=== PATIENT | female | born 1940 | race African-American/Black ===

== ENCOUNTER 2018-09-05 19:00 | Inpatient (IN) ==
[2018-09-05] MEDS ORDERED: METOPROLOL TARTRATE 5 MG/5 ML VIAL IV ONE (19:21)
[2018-09-05] MEDS ORDERED: METOPROLOL TARTRATE 5 MG/5 ML VIAL IV STA (19:22)
[2018-09-05] MEDS ORDERED: ASPIRIN 325 MG TABLET PO STA (19:22)
[2018-09-05] MEDS ORDERED: ONDANSETRON 4 MG/2 ML VIAL IV STA (19:22)
[2018-09-05] MEDS ORDERED: dilTIAZem Drip 125 MG/125 ML PREMIX IV ONE (19:27)
[2018-09-05] MEDS ORDERED: dilTIAZem Drip 125 MG/125 ML PREMIX IV SCH ×2 (19:30→20:30)
[2018-09-05 19:35] LABS: Basophils % 0.1 % (0.0-0.8); Eosinophils % 0.1 % (0.00-10.9); Hematocrit 39.7 VOL% (35.7-47.0); Hemoglobin 12.5 GM/DL (12.0-16.0); Immature Granulocytes % 0.4 %; Immature Granulocytes Absolute 0.05 #; Lymphocytes % 8.4 % (21.3-54.2); Mean Corpuscular HGB Conc 31.5 GM/DL (32-36); Mean Corpuscular Volume 98.8 FL (87-102); Monocytes % 9.2 % (1.7-12.7); Neutrophils % 81.8 % (38.7-73.9); Platelet Count 189 T/CUMM (130-400); Red Blood Count 4.02 MC/CUMM (3.8-5.5); Red Cell Distribution Width 12.5 % (9.3-17.3); White Blood Count 11.5 T/CUMM (4-12)
[2018-09-05 19:43] LABS: INR 0.9; PT Patient Result 10.2 SECS
[2018-09-05 20:06] LABS: Albumin 3.6 G/DL (3.4-5.0); Bilirubin,Total 1.3 MG/DL (0.2-1.0); Calcium 9.5 MG/DL (8.5-10.1); Osmolality,Calculated 272.1 MOS/KG (273-304); Total Protein 7.8 G/DL (6.4-8.3)
[2018-09-05] MEDS ORDERED: POTASSIUM CHLORIDE 20 MEQ TABLET PO STA (20:14)
[2018-09-05] MEDS ORDERED: ENOXAPARIN 30 MG/0.3 ML SYRINGE SUBCUT STA (20:17)
[2018-09-05] MEDS ORDERED: PROMETHAZINE 25 MG/1 ML VIAL IM PRN (20:21)
[2018-09-05] MEDS ORDERED: ONDANSETRON 4 MG/2 ML VIAL IV PRN (20:21)
[2018-09-05] MEDS ORDERED: diphenhydrAMINE CAP 25 MG CAPSULE PO PRN (20:21)
[2018-09-05] MEDS ORDERED: NICOTINE 21 MG/24 HR PATCH TRANSDERM PRN (20:21)
[2018-09-05] MEDS ORDERED: POTASSIUM CHLORIDE 20 MEQ TABLET PO PRN (20:21)
[2018-09-05] MEDS ORDERED: GLUCAGON 1 MG VIAL IM PRN (20:21)
[2018-09-05] MEDS ORDERED: MORPHINE 4 MG/1 ML VIAL IV PRN (20:21)
[2018-09-05] MEDS ORDERED: BISACODYL 5 MG TABLET PO PRN (20:21)
[2018-09-05] MEDS ORDERED: DEXTROSE 50% 25 GM/50 ML VIAL IV PRN (20:21)
[2018-09-05] MEDS ORDERED: ACETAMINOPHEN 325 MG TABLET PO PRN (20:21)
[2018-09-05 21:07] LABS: Risk Ratio 1.81; Thyroid Stimulating Hormone 2.62 uIU/ml (0.358-3.74)
[2018-09-06] MEDS: SODIUM CHLORIDE 0.9% 1,000 ML IV SCH ×2 (00:49→14:49)
[2018-09-06] MEDS: INSULIN REGULAR 100 UNIT/ML SUBCUT SCH ×5 (00:50→22:05)
[2018-09-06 05:27] LABS: Basophils % 0.3 % (0.0-0.8); Eosinophils # 0.1 10*3/uL (0.0-0.87); Eosinophils % 0.8 % (0.00-10.9); Hematocrit 34.3 VOL% (35.7-47.0); Hemoglobin 10.8 GM/DL (12.0-16.0); Immature Granulocytes % 0.5 %; Immature Granulocytes Absolute 0.04 #; Lymphocytes # 1.1 10*3/uL (1.4-4.0); Mean Corpuscular HGB Conc 31.5 GM/DL (32-36); Mean Corpuscular Volume 99.1 FL (87-102); Mean Platelet Volume 12.1 FL (9.6-12.0); Monocytes % 11.8 % (1.7-12.7); Neutrophils % 72.6 % (38.7-73.9); Platelet Count 162 T/CUMM (130-400); Red Blood Count 3.46 MC/CUMM (3.8-5.5); Red Cell Distribution Width 12.6 % (9.3-17.3); White Blood Count 7.8 T/CUMM (4-12)
[2018-09-06] MEDS ORDERED: hydrALAZINE 20 MG/1 ML VIAL IV PRN (05:36)
[2018-09-06 06:03] LABS: Albumin 2.9 G/DL (3.4-5.0); Bilirubin,Total 1.6 MG/DL (0.2-1.0); Calcium 9.2 MG/DL (8.5-10.1); Osmolality,Calculated 274.7 MOS/KG (273-304); Total Protein 6.8 G/DL (6.4-8.3)
[2018-09-06] MEDS ORDERED: POTASSIUM CHLORIDE 20 MEQ TABLET PO ONE (07:41)
[2018-09-06] MEDS ORDERED: ENOXAPARIN 80 MG/0.8 ML SYRINGE SUBCUT ONE (08:00)
[2018-09-06] MEDS: PANTOPRAZOLE 40 MG TABLET PO SCH (09:17)
[2018-09-06] MEDS: POTASSIUM CHLORIDE RIDER 10 MEQ in PREMIX 1 EACH IV SCH ×2 (10:10→13:33)
[2018-09-06] MEDS: MAGNESIUM OXIDE 400 MG TABLET PO SCH ×2 (12:29→22:04)
[2018-09-06 17:49] LABS: Apearance,Urine CLEAR (Clear); Bilirubin,Urine Negative (Negative); Blood, Urine Small mg/dL (Negative); Glucose,Urine (UA) Negative (Negative); Ketones,Urine 5 mg/dL (Negative); Mucus,Urine Few /LPF (Occasional); Nitrite,Urine Negative (Negative); Protein,Urine 30 MG/DL; RBC,Urine 16 /HPF (0-4); Squamous Epithelial Cell,Urine Occasional /HPF (0-10); Urine Color Dark yellow (Yellow); Urine Specific Gravity 1.023 (1.001-1.035); WBC,Urine 3 /HPF (0-6)
[2018-09-06] MEDS: APIXABAN 5 MG TABLET PO SCH (22:05)
[2018-09-06] MEDS: METOPROLOL TARTRATE 25 MG TABLET PO SCH (22:05)
[2018-09-07 06:00] LABS: Basophils % 0.3 % (0.0-0.8); Eosinophils # 0.2 10*3/uL (0.0-0.87); Eosinophils % 2.4 % (0.00-10.9); Hematocrit 34.7 VOL% (35.7-47.0); Hemoglobin 11.1 GM/DL (12.0-16.0); Immature Granulocytes % 0.3 %; Immature Granulocytes Absolute 0.02 #; Lymphocytes # 1.1 10*3/uL (1.4-4.0); Lymphocytes % 16.7 % (21.3-54.2); Mean Corpuscular Volume 99.1 FL (87-102); Mean Platelet Volume 12.1 FL (9.6-12.0); Monocytes % 8.5 % (1.7-12.7); Neutrophils % 71.8 % (38.7-73.9); Platelet Count 163 T/CUMM (130-400); Red Cell Distribution Width 12.5 % (9.3-17.3); White Blood Count 6.6 T/CUMM (4-12)
[2018-09-07 06:22] LABS: Osmolality,Calculated 271.8 MOS/KG (273-304)
[2018-09-07] MEDS ORDERED: DONEPEZIL 5 MG TABLET PO SCH (09:00)
[2018-09-07] MEDS ORDERED: ASPIRIN EC 81 MG TABLET PO SCH (09:00)
[2018-09-07] MEDS ORDERED: LISINOPRIL 5 MG TABLET PO SCH (09:00)
[2018-09-07] MEDS ORDERED: POTASSIUM CHLORIDE 20 MEQ TABLET PO SCH (09:00)
[2018-09-07] MEDS ORDERED: SERTRALINE 25 MG TABLET PO SCH (09:00)
[2018-09-07] MEDS ORDERED: ATORVASTATIN 10 MG TABLET PO SCH (09:00)
[2018-09-07] MEDS: INSULIN REGULAR 100 UNIT/ML SUBCUT SCH (09:28)
[2018-09-07] MEDS: MAGNESIUM OXIDE 400 MG TABLET PO SCH (09:30)
[2018-09-07] MEDS: METOPROLOL TARTRATE 25 MG TABLET PO SCH (09:30)
[2018-09-07] MEDS: PANTOPRAZOLE 40 MG TABLET PO SCH (09:31)
[2018-09-07] MEDS: APIXABAN 5 MG TABLET PO SCH (09:31)
[2018-09-07 11:54] VITALS: BP 151/85
== END 2018-09-07 12:55 | disposition home or self-care (01) | DRG 309 ==
LOC: N.ED 19:00 → SUATTDRO 20:22 → N.EDINP 20:22 → N.TELEN 22:10
PROVIDERS: ADMIT Family Medicine; ATTEND Internal Medicine

== ENCOUNTER 2019-05-26 10:44 | Inpatient (IN) ==
[2019-05-26] MEDS ORDERED: ACETAMINOPHEN 500 MG TABLET ONE (11:01)
[2019-05-26] MEDS ORDERED: cefTRIAXone 1,000 MG in SODIUM CHLORIDE 0.9% 100 ML IV STA (11:21)
[2019-05-26 11:30] LABS: Basophils % 0.1 % (0.0-0.8); Hematocrit 41.3 VOL% (35.7-47.0); Hemoglobin 13.2 GM/DL (12.0-16.0); Immature Granulocytes % 0.4 %; Immature Granulocytes Absolute 0.04 #; Lymphocytes # 0.3 10*3/uL (1.4-4.0); Lymphocytes % 3.7 % (21.3-54.2); Mean Corpuscular Volume 98.6 FL (87-102); Mean Platelet Volume 12.3 FL (9.6-12.0); Monocytes % 3.2 % (1.7-12.7); Neutrophils % 92.6 % (38.7-73.9); Platelet Count 154 T/CUMM (130-400); Red Blood Count 4.19 MC/CUMM (3.8-5.5); Red Cell Distribution Width 11.7 % (9.3-17.3)
[2019-05-26 11:49] LABS: Apearance,Urine Slightly Hazy (Clear); Bacteria,Urine Occasional /HPF (Few); Bilirubin,Urine Negative (Negative); Blood, Urine Negative (Negative); Glucose,Urine (UA) 50 mg/dL (Negative); Ketones,Urine 20 mg/dL (Negative); Mucus,Urine Occasional /LPF (Occasional); Nitrite,Urine Negative (Negative); Protein,Urine >=500 MG/DL; RBC,Urine 9 /HPF (0-4); Squamous Epithelial Cell,Urine Occasional /HPF (0-10); Urine Color Amber (Yellow); Urine Specific Gravity 1.027 (1.001-1.035); WBC,Urine 3 /HPF (0-6)
[2019-05-26 11:58] LABS: Alanine Aminotransferase 17 U/L (13-56); Albumin 3.1 G/DL (3.4-5.0); Alkaline Phosphatase 78 U/L (45-117); Aspartate Amino Transferase 51 U/L (0-37); Blood Urea Nitrogen 9 MG/DL (7-18); Calcium 8.6 MG/DL (8.5-10.1); Estimated Glom Filtration Rate 114 ML/MIN; Glucose 91 MG/DL (74-106); Osmolality,Calculated 268.1 MOS/KG (273-304); Total Protein 7.6 G/DL (6.4-8.3)
[2019-05-26 12:49] LABS: Band Neutrophils 25 % (0-10); Lymphocytes 2 % (20-55); Platelet Estimate Normal; Segmented Neutrophils 71 % (50-85); Total Cells Counted 100
[2019-05-26 12:50] LABS: Anisocytosis 1+; Macrocytosis Slight
[2019-05-26 13:47] LABS: ABG Base Excess 6.4 MMOL/L (-2.5-2.5); ABG Oxygen Saturation 90.6 % (95-100); ABG PCO2 35.8 MM HG (35-48); ABG PH 7.521 (7.35-7.45); ABG TCO2 25.8 MMOL/L (23-27)
[2019-05-26] MEDS: PIPERACILLIN/TAZOBACTAM 3,375 MG in SODIUM CHLORIDE 0.9% 100 ML IV SCH ×2 (14:21→22:30)
[2019-05-26] MEDS ORDERED: AZITHROMYCIN INJ 500 MG in SODIUM CHLORIDE 0.9% 250 ML IV SCH (14:30)
[2019-05-26] MEDS ORDERED: DEXTROSE 50% 25 GM/50 ML SYRINGE IV ONE (14:30)
[2019-05-26] MEDS ORDERED: DEXTROSE 10% 250 ML BAG IV PRN (14:31)
[2019-05-26] MEDS ORDERED: DEXTROSE 50% 25 GM/50 ML VIAL IV PRN (14:31)
[2019-05-26] MEDS ORDERED: GLUCAGON 1 MG VIAL IM PRN (14:31)
[2019-05-26] MEDS ORDERED: DEXTROSE 50% 25 GM/50 ML SYRINGE IV PRN (14:32)
[2019-05-26] MEDS ORDERED: SIMETHICONE CHEW 125 MG TABLET PO PRN (15:07)
[2019-05-26] MEDS ORDERED: DOCUSATE SODIUM 100 MG CAPSULE PO PRN (15:07)
[2019-05-26] MEDS ORDERED: LACTULOSE 20 GM/30 ML UDCUP PO PRN (15:07)
[2019-05-26] MEDS ORDERED: ALUMINUM/MAGNES/SIMETH MAX STR 30 ML UDCUP PO PRN (15:07)
[2019-05-26] MEDS ORDERED: ACETAMINOPHEN 500 MG TABLET PO STA (15:07)
[2019-05-26] MEDS ORDERED: ZALEPLON 5 MG CAPSULE PO PRN (15:07)
[2019-05-26] MEDS ORDERED: BISACODYL 5 MG TABLET PO PRN (15:07)
[2019-05-26] MEDS ORDERED: POTASSIUM CHLORIDE RIDER 10 MEQ in PREMIX 1 EACH IV PRN (15:07)
[2019-05-26] MEDS: INSULIN LISPRO 100 UNIT/ML SUBCUT SCH (15:40)
[2019-05-26] MEDS: VANCOMYCIN INJ 1,000 MG in SODIUM CHLORIDE 0.9% 250 ML IV SCH (17:47)
[2019-05-26] MEDS: APIXABAN 5 MG TABLET PO SCH (21:50)
[2019-05-26 21:53] LABS: ABG Base Excess 6.6 MMOL/L (-2.5-2.5); ABG HCO3 30.2 MMOL/L (20-26); ABG Oxygen Saturation 88.9 % (95-100); ABG PCO2 38.3 MM HG (35-48); ABG PH 7.504 (7.35-7.45); ABG PO2 53.8 MM HG (80-95); ABG TCO2 26.4 MMOL/L (23-27); Allen Test Positive
[2019-05-27] MEDS: INSULIN LISPRO 100 UNIT/ML SUBCUT SCH ×3 (00:35→12:34)
[2019-05-27] MEDS: VANCOMYCIN INJ 1,000 MG in SODIUM CHLORIDE 0.9% 250 ML IV SCH (05:00)
[2019-05-27 06:45] LABS: Albumin 2.8 G/DL (3.4-5.0); Bilirubin,Total 0.9 MG/DL (0.2-1.0); Calcium 8.9 MG/DL (8.5-10.1); Total Protein 7.9 G/DL (6.4-8.3)
[2019-05-27 07:00] LABS: Risk Ratio 1.91
[2019-05-27] MEDS ORDERED: DEXTROSE 5% NACL 0.45% 1,000 ML IV SCH (07:00)
[2019-05-27] MEDS ORDERED: SODIUM CHLORIDE 0.9% 1,000 ML IV SCH (07:00)
[2019-05-27] MEDS: PIPERACILLIN/TAZOBACTAM 3,375 MG in SODIUM CHLORIDE 0.9% 100 ML IV SCH ×2 (07:29→19:51)
[2019-05-27] MEDS ORDERED: SODIUM PHOSPHATE INJ 30 MMOL in SODIUM CHLORIDE 0.9% 250 ML IV ONE (08:00)
[2019-05-27] MEDS: ATORVASTATIN 10 MG TABLET PO SCH (10:54)
[2019-05-27] MEDS: DONEPEZIL 5 MG TABLET PO SCH (10:54)
[2019-05-27] MEDS: APIXABAN 5 MG TABLET PO SCH ×2 (10:54→21:40)
[2019-05-27] MEDS: ASPIRIN EC 81 MG TABLET PO SCH (10:54)
[2019-05-27] MEDS: lisinopriL 5 MG TABLET PO SCH (10:55)
[2019-05-27] MEDS: SERTRALINE 25 MG TABLET PO SCH (10:55)
[2019-05-27] MEDS: POTASSIUM CHLORIDE RIDER 10 MEQ in PREMIX 1 EACH IV PRN ×4 (12:27→17:30)
[2019-05-27 12:38] LABS: Basophils % 0.1 % (0.0-0.8); Hematocrit 42.9 VOL% (35.7-47.0); Hemoglobin 13.8 GM/DL (12.0-16.0); Immature Granulocytes % 0.5 %; Immature Granulocytes Absolute 0.05 #; Lymphocytes # 0.5 10*3/uL (1.4-4.0); Lymphocytes % 5.4 % (21.3-54.2); Mean Corpuscular HGB Conc 32.2 GM/DL (32-36); Mean Corpuscular Volume 99.5 FL (87-102); Mean Platelet Volume 12.2 FL (9.6-12.0); Monocytes % 2.6 % (1.7-12.7); Neutrophils % 91.4 % (38.7-73.9); Platelet Count 165 T/CUMM (130-400); Red Blood Count 4.31 MC/CUMM (3.8-5.5); Red Cell Distribution Width 11.9 % (9.3-17.3); White Blood Count 9.8 T/CUMM (4-12)
[2019-05-27] MEDS: ACETAMINOPHEN 325 MG TABLET PO PRN (12:45)
[2019-05-27] MEDS ORDERED: SODIUM CHLORIDE 0.9% 2,200 ML IV ONE (15:33)
[2019-05-27] MEDS ORDERED: ACETAMINOPHEN 650 MG SUPP RECTAL ONE (15:41)
[2019-05-27] MEDS ORDERED: ACETAMINOPHEN 650 MG SUPP RECTAL PRN (15:41)
[2019-05-27 16:18] LABS: ABG Base Excess 3.5 MMOL/L (-2.5-2.5); ABG HCO3 27.4 MMOL/L (20-26); ABG Oxygen Saturation 90.5 % (95-100); ABG PCO2 32.5 MM HG (35-48); ABG PH 7.511 (7.35-7.45); ABG PO2 55.6 MM HG (80-95); ABG TCO2 22.6 MMOL/L (23-27)
[2019-05-27 16:27] LABS: Band Neutrophils 7 % (0-10); Lymphocytes 7 % (20-55); Segmented Neutrophils 84 % (50-85); Total Cells Counted 100
[2019-05-27 16:28] LABS: Microcytosis 1+; Platelet Estimate Adequate
[2019-05-27] MEDS: AZITHROMYCIN 250 MG TABLET PO SCH (18:47)
[2019-05-27] MEDS: METOPROLOL TARTRATE 25 MG TABLET PO SCH (21:40)
[2019-05-27] MEDS: ASCORBIC ACID 500 MG TABLET PO SCH (21:40)
[2019-05-28] MEDS: DEXTROSE 5% NACL 0.45% 1,000 ML IV SCH ×2 (00:30→21:31)
[2019-05-28] MEDS: VANCOMYCIN INJ 1,000 MG in SODIUM CHLORIDE 0.9% 250 ML IV SCH ×2 (00:32→14:46)
[2019-05-28] MEDS: PIPERACILLIN/TAZOBACTAM 3,375 MG in SODIUM CHLORIDE 0.9% 100 ML IV SCH ×3 (03:45→21:32)
[2019-05-28 04:54] LABS: ABG Base Excess 3.2 MMOL/L (-2.5-2.5); ABG HCO3 27.1 MMOL/L (20-26); ABG PCO2 34.5 MM HG (35-48); ABG PH 7.489 (7.35-7.45); ABG PO2 49.8 MM HG (80-95); ABG TCO2 22.9 MMOL/L (23-27)
[2019-05-28 06:10] LABS: Basophils % 0.1 % (0.0-0.8); Hematocrit 40.7 VOL% (35.7-47.0); Hemoglobin 12.7 GM/DL (12.0-16.0); Immature Granulocytes % 0.6 %; Immature Granulocytes Absolute 0.06 #; Lymphocytes # 0.4 10*3/uL (1.4-4.0); Lymphocytes % 3.5 % (21.3-54.2); Mean Corpuscular HGB Conc 31.2 GM/DL (32-36); Mean Platelet Volume 12.3 FL (9.6-12.0); Monocytes % 1.5 % (1.7-12.7); Neutrophils % 94.3 % (38.7-73.9); Platelet Count 179 T/CUMM (130-400); Red Blood Count 4.07 MC/CUMM (3.8-5.5); Red Cell Distribution Width 11.9 % (9.3-17.3); White Blood Count 10.7 T/CUMM (4-12)
[2019-05-28 06:28] LABS: Band Neutrophils 6 % (0-10); Lymphocytes 4 % (20-55); Platelet Estimate Adequate; Segmented Neutrophils 90 % (50-85); Total Cells Counted 100
[2019-05-28 06:29] LABS: Hypochromasia 1+; Microcytosis 1+; Ovalocytes Slight
[2019-05-28 06:32] LABS: Albumin 2.1 G/DL (3.4-5.0); Bilirubin,Total 0.7 MG/DL (0.2-1.0); Calcium 8.5 MG/DL (8.5-10.1); Total Protein 6.8 G/DL (6.4-8.3)
[2019-05-28] MEDS: ASPIRIN EC 81 MG TABLET PO SCH (09:49)
[2019-05-28] MEDS: ATORVASTATIN 10 MG TABLET PO SCH (09:49)
[2019-05-28] MEDS: DONEPEZIL 5 MG TABLET PO SCH (09:49)
[2019-05-28] MEDS: AZITHROMYCIN 250 MG TABLET PO SCH (09:49)
[2019-05-28] MEDS: ASCORBIC ACID 500 MG TABLET PO SCH ×2 (09:49→22:34)
[2019-05-28] MEDS: lisinopriL 5 MG TABLET PO SCH (09:50)
[2019-05-28] MEDS: APIXABAN 5 MG TABLET PO SCH ×2 (09:50→22:34)
[2019-05-28] MEDS: SERTRALINE 25 MG TABLET PO SCH (09:50)
[2019-05-28] MEDS: METOPROLOL TARTRATE 25 MG TABLET PO SCH ×2 (09:50→22:34)
[2019-05-28] MEDS ORDERED: POTASSIUM CHLORIDE 20 MEQ TABLET PO ONE (12:00)
[2019-05-28] MEDS: ACETAMINOPHEN 325 MG TABLET PO PRN (16:59)
[2019-05-28] MEDS: hydrALAZINE 20 MG/1 ML VIAL IV PRN (17:15)
[2019-05-28] MEDS ORDERED: ONDANSETRON 4 MG/2 ML VIAL IV ONE (17:21)
[2019-05-28 17:58] LABS: ABG Base Excess 1.7 MMOL/L (-2.5-2.5); ABG HCO3 25.7 MMOL/L (20-26); ABG Oxygen Saturation 89.1 % (95-100); ABG PCO2 34.8 MM HG (35-48); ABG PH 7.465 (7.35-7.45); ABG PO2 54.6 MM HG (80-95); ABG TCO2 21.9 MMOL/L (23-27)
[2019-05-29] MEDS: VANCOMYCIN INJ 1,000 MG in SODIUM CHLORIDE 0.9% 250 ML IV SCH ×2 (03:41→13:15)
[2019-05-29] MEDS: PIPERACILLIN/TAZOBACTAM 3,375 MG in SODIUM CHLORIDE 0.9% 100 ML IV SCH ×3 (03:49→18:05)
[2019-05-29 04:12] LABS: ABG HCO3 25.9 MMOL/L (20-26); ABG Oxygen Saturation 82.9 % (95-100); ABG PCO2 41.6 MM HG (35-48); ABG PH 7.416 (7.35-7.45); ABG TCO2 23.6 MMOL/L (23-27)
[2019-05-29 06:40] LABS: Amorphous Crystals,Urine Few /HPF (Few); Apearance,Urine CLEAR (Clear); Bacteria,Urine Occasional /HPF (Few); Bilirubin,Urine Negative (Negative); Blood, Urine Negative (Negative); Glucose,Urine (UA) Negative (Negative); Ketones,Urine 5 mg/dL (Negative); Nitrite,Urine Negative (Negative); Protein,Urine 100 MG/DL; RBC,Urine 14 /HPF (0-4); Urine Color Yellow (Yellow); Urine Specific Gravity 1.016 (1.001-1.035); Urine Urobilinogen < 2.0 EU/DL (0.2-1.0); WBC,Urine 1 /HPF (0-6)
[2019-05-29] MEDS: hydrALAZINE 20 MG/1 ML VIAL IV PRN (08:15)
[2019-05-29 08:34] LABS: Albumin 2.2 G/DL (3.4-5.0); Bilirubin,Total 0.5 MG/DL (0.2-1.0); Calcium 8.6 MG/DL (8.5-10.1); Osmolality,Calculated 279.5 MOS/KG (273-304); Total Protein 6.6 G/DL (6.4-8.3)
[2019-05-29] MEDS: METOPROLOL TARTRATE 25 MG TABLET PO SCH ×2 (08:35→21:30)
[2019-05-29] MEDS: lisinopriL 5 MG TABLET PO SCH (08:35)
[2019-05-29] MEDS: APIXABAN 5 MG TABLET PO SCH ×2 (08:35→21:30)
[2019-05-29] MEDS: ASPIRIN EC 81 MG TABLET PO SCH (08:35)
[2019-05-29] MEDS: DONEPEZIL 5 MG TABLET PO SCH (08:35)
[2019-05-29] MEDS: SERTRALINE 25 MG TABLET PO SCH (08:35)
[2019-05-29] MEDS: ASCORBIC ACID 500 MG TABLET PO SCH ×2 (08:35→21:30)
[2019-05-29] MEDS: AZITHROMYCIN 250 MG TABLET PO SCH (08:35)
[2019-05-29] MEDS: ATORVASTATIN 10 MG TABLET PO SCH (08:35)
[2019-05-29] MEDS ORDERED: FUROSEMIDE 40 MG/4 ML VIAL IV ONE (09:28)
[2019-05-29] MEDS ORDERED: methylPREDNISolone SOD SUC 40 MG/1 ML VIAL IM SCH (09:30)
[2019-05-29] MEDS: methylPREDNISolone SOD SUC 40 MG/1 ML VIAL IV SCH ×2 (10:35→21:30)
[2019-05-29 10:40] LABS: Basophils % 0.1 % (0.0-0.8); Hematocrit 39.5 VOL% (35.7-47.0); Hemoglobin 12.3 GM/DL (12.0-16.0); Immature Granulocytes % 0.9 %; Lymphocytes # 0.3 10*3/uL (1.4-4.0); Mean Corpuscular HGB Conc 31.1 GM/DL (32-36); Mean Corpuscular Volume 101.8 FL (87-102); Mean Platelet Volume 11.5 FL (9.6-12.0); Monocytes % 2.5 % (1.7-12.7); Neutrophils % 93.5 % (38.7-73.9); Platelet Count 246 T/CUMM (130-400); Red Blood Count 3.88 MC/CUMM (3.8-5.5); Red Cell Distribution Width 12.1 % (9.3-17.3); White Blood Count 11.4 T/CUMM (4-12)
[2019-05-29 10:58] LABS: Band Neutrophils 4 % (0-10); Lymphocytes 4 % (20-55); Segmented Neutrophils 89 % (50-85); Total Cells Counted 100
[2019-05-29 10:59] LABS: Hypochromasia 1+; Macrocytosis Slight; Ovalocytes Slight
[2019-05-29] MEDS: POTASSIUM CHLORIDE RIDER 10 MEQ in PREMIX 1 EACH IV PRN (11:32)
[2019-05-29] MEDS: POTASSIUM CHLORIDE 20 MEQ TABLET PO PRN ×2 (13:33→14:29)
[2019-05-29] MEDS: ACETAMINOPHEN 325 MG TABLET PO PRN ×2 (14:29→22:10)
[2019-05-29] MEDS ORDERED: CALCIUM ACETATE 667 MG CAPSULE PO SCH (17:00)
[2019-05-29] MEDS: DEXTROSE 5% NACL 0.45% 1,000 ML IV SCH (23:20)
[2019-05-30] MEDS: VANCOMYCIN INJ 1,000 MG in SODIUM CHLORIDE 0.9% 250 ML IV SCH ×2 (00:40→13:40)
[2019-05-30] MEDS: PIPERACILLIN/TAZOBACTAM 3,375 MG in SODIUM CHLORIDE 0.9% 100 ML IV SCH ×3 (02:30→16:36)
[2019-05-30 05:55] LABS: Basophils % 0.1 % (0.0-0.8); Hematocrit 40.5 VOL% (35.7-47.0); Hemoglobin 12.7 GM/DL (12.0-16.0); Immature Granulocytes % 0.7 %; Immature Granulocytes Absolute 0.06 #; Lymphocytes # 0.3 10*3/uL (1.4-4.0); Lymphocytes % 4.1 % (21.3-54.2); Mean Corpuscular HGB Conc 31.4 GM/DL (32-36); Mean Platelet Volume 11.5 FL (9.6-12.0); Monocytes % 2.5 % (1.7-12.7); Neutrophils % 92.6 % (38.7-73.9); Platelet Count 275 T/CUMM (130-400); Red Blood Count 4.01 MC/CUMM (3.8-5.5); Red Cell Distribution Width 11.9 % (9.3-17.3); White Blood Count 8.3 T/CUMM (4-12)
[2019-05-30 06:06] LABS: ABG HCO3 25.2 MMOL/L (20-26); ABG Oxygen Saturation 86.3 % (95-100); ABG PCO2 42.9 MM HG (35-48); ABG PH 7.386 (7.35-7.45); ABG PO2 54.5 MM HG (80-95); ABG TCO2 26.5 MMOL/L (23-27); Allen Test Positive
[2019-05-30 06:14] LABS: Albumin 2.2 G/DL (3.4-5.0); Bilirubin,Total 0.4 MG/DL (0.2-1.0); Osmolality,Calculated 288.5 MOS/KG (273-304); Total Protein 6.8 G/DL (6.4-8.3)
[2019-05-30 06:18] LABS: Band Neutrophils 2 % (0-10); Hypochromasia 1+; Lymphocytes 1 % (20-55); Metamyelocytes 1 %; Segmented Neutrophils 90 % (50-85); Total Cells Counted 100
[2019-05-30 06:30] LABS: Burr Cells Slight; Macrocytosis Slight; Platelet Estimate Normal
[2019-05-30] MEDS: methylPREDNISolone SOD SUC 40 MG/1 ML VIAL IV SCH ×2 (08:35→20:00)
[2019-05-30] MEDS: AZITHROMYCIN 250 MG TABLET PO SCH (08:35)
[2019-05-30] MEDS: ATORVASTATIN 10 MG TABLET PO SCH (08:35)
[2019-05-30] MEDS: METOPROLOL TARTRATE 25 MG TABLET PO SCH ×2 (08:35→20:11)
[2019-05-30] MEDS: SERTRALINE 25 MG TABLET PO SCH (08:35)
[2019-05-30] MEDS: APIXABAN 5 MG TABLET PO SCH ×2 (08:35→20:11)
[2019-05-30] MEDS: ASCORBIC ACID 500 MG TABLET PO SCH ×2 (08:35→20:11)
[2019-05-30] MEDS: DONEPEZIL 5 MG TABLET PO SCH (08:35)
[2019-05-30] MEDS: ASPIRIN EC 81 MG TABLET PO SCH (08:35)
[2019-05-30 12:36] LABS: Bilirubin,Total 0.5 MG/DL (0.2-1.0); Calcium 9.2 MG/DL (8.5-10.1); Osmolality,Calculated 289.5 MOS/KG (273-304)
[2019-05-30] MEDS: hydrALAZINE 20 MG/1 ML VIAL IV PRN (16:10)
[2019-05-30] MEDS: LORazepam 2 MG/1 ML VIAL IV PRN (20:11)
[2019-05-30] MEDS: MORPHINE 4 MG/1 ML VIAL IV PRN (22:41)
[2019-05-31] MEDS: LORazepam 2 MG/1 ML VIAL IV PRN (00:50)
[2019-05-31] MEDS: PIPERACILLIN/TAZOBACTAM 3,375 MG in SODIUM CHLORIDE 0.9% 100 ML IV SCH ×2 (00:50→08:54)
[2019-05-31] MEDS: MORPHINE 4 MG/1 ML VIAL IV PRN ×3 (04:20→14:57)
[2019-05-31 07:17] LABS: Basophils % 0.1 % (0.0-0.8); Hematocrit 38.1 VOL% (35.7-47.0); Hemoglobin 11.9 GM/DL (12.0-16.0); Immature Granulocytes % 0.8 %; Immature Granulocytes Absolute 0.11 #; Lymphocytes # 0.4 10*3/uL (1.4-4.0); Lymphocytes % 2.9 % (21.3-54.2); Mean Corpuscular HGB Conc 31.2 GM/DL (32-36); Mean Corpuscular Volume 100.8 FL (87-102); Mean Platelet Volume 11.6 FL (9.6-12.0); Monocytes % 3.7 % (1.7-12.7); Neutrophils % 92.5 % (38.7-73.9); Platelet Count 335 T/CUMM (130-400); Red Blood Count 3.78 MC/CUMM (3.8-5.5); White Blood Count 13.6 T/CUMM (4-12)
[2019-05-31 07:35] LABS: Albumin 2.2 G/DL (3.4-5.0); Bilirubin,Total 0.5 MG/DL (0.2-1.0); Calcium 9.3 MG/DL (8.5-10.1); Osmolality,Calculated 294.4 MOS/KG (273-304); Total Protein 6.9 G/DL (6.4-8.3)
[2019-05-31 07:36] LABS: Burr Cells Slight; Hypochromasia Slight; Lymphocytes 4 % (20-55); Ovalocytes Slight; Platelet Estimate Adequate; Segmented Neutrophils 90 % (50-85); Total Cells Counted 100
[2019-05-31] MEDS: methylPREDNISolone SOD SUC 40 MG/1 ML VIAL IV SCH (08:56)
[2019-05-31] MEDS: APIXABAN 5 MG TABLET PO SCH (08:56)
[2019-05-31] MEDS: ASPIRIN EC 81 MG TABLET PO SCH (08:56)
[2019-05-31] MEDS: DONEPEZIL 5 MG TABLET PO SCH (08:56)
[2019-05-31] MEDS: ATORVASTATIN 10 MG TABLET PO SCH (08:56)
[2019-05-31] MEDS: METOPROLOL TARTRATE 25 MG TABLET PO SCH (08:57)
[2019-05-31] MEDS: SERTRALINE 25 MG TABLET PO SCH (08:57)
[2019-05-31] MEDS: ASCORBIC ACID 500 MG TABLET PO SCH (08:57)
[2019-05-31] MEDS ORDERED: FUROSEMIDE 100 MG/10 ML VIAL IV ONE (10:30)
[2019-05-31 11:00] VITALS: BP 147/66
[2019-05-31] MEDS ORDERED: MORPHINE 4 MG/1 ML VIAL IV PRN ×2 (12:14→12:33)
[2019-05-31] MEDS ORDERED: LORazepam 2 MG/1 ML VIAL IV PRN (12:33)
[2019-05-31] MEDS ORDERED: FUROSEMIDE 40 MG/4 ML VIAL ONE (13:48)
[2019-05-31] MEDS ORDERED: VANCOMYCIN INJ 1,000 MG in SODIUM CHLORIDE 0.9% 250 ML IV SCH (15:00)
[2019-05-31] MEDS ORDERED: methylPREDNISolone SOD SUC 40 MG/1 ML VIAL IV SCH (17:00)
== END 2019-05-31 14:39 | disposition hospice, inpatient (51) | DRG 177 ==
LOC: EDUNIT# → EDBD → N.ED 10:44 → N.EDINP 13:43 → SUATTDRO 13:43 → N.EDINP 14:25 → N.2E 15:21 → N.ICU 05-28 18:29 → N.2W 05-29 18:26
PROVIDERS: ADMIT Internal Medicine; ATTEND Internal Medicine

== ENCOUNTER 2019-05-31 14:52 | Inpatient (IN) ==
[2019-06-01] MEDS: MORPHINE 4 MG/1 ML VIAL IV PRN ×6 (01:30→22:47)
[2019-06-02] MEDS: MORPHINE 4 MG/1 ML VIAL IV PRN ×5 (04:03→21:14)
[2019-06-03] MEDS: MORPHINE 4 MG/1 ML VIAL IV PRN ×2 (02:56→16:04)
[2019-06-04] MEDS: MORPHINE 4 MG/1 ML VIAL IV PRN ×4 (00:40→16:52)
[2019-06-04] MEDS: LORazepam 2 MG/1 ML VIAL IV PRN ×2 (09:08→23:20)
[2019-06-04] MEDS ORDERED: TUBERCULIN SKIN TEST 0.1 ML SYRINGE INTRADERM ONE (13:41)
[2019-06-04 22:09] VITALS: BP 104/88
== END 2019-06-05 05:16 | disposition expired | DRG 951 ==
LOC: N.2W 14:52
PROVIDERS: ADMIT Internal Medicine; ATTEND Internal Medicine